=== PATIENT | female | born 1970 | race Caucasian/White ===

== ENCOUNTER 2017-11-23 16:14 | Emergency (ER) | payer OTHER ==
[2017-11-23] MEDS: LORAZEPAM 0.5 MG TAB PO (19:17)
[2017-11-23] MEDS: IBUPROFEN 600 MG TAB PO (19:17)
== END 2017-11-23 19:35 | disposition home or self-care (01) ==
LOC: FTE 16:14
DX: S09.90XA Unspecified injury of head, initial encounter (principal); E11.9 Type 2 diabetes mellitus without complications; W22.8XXA Striking against or struck by other objects, initial encounter; Y92.9 Unspecified place or not applicable
CPT/HCPCS: 99283; Z7502

== ENCOUNTER 2018-09-10 11:01 | Emergency (ER) | payer OTHER ==
[2018-09-10 12:58] LABS: ADD UMIC YES; UR ASCORBIC ACID NEGATIVE (NEGATIVE); UR BACTERIA FEW /HPF (NONE SEEN); UR BILIRUBIN (Dip) NEGATIVE (NEGATIVE); UR BLOOD (Dip) 1+ mg/dL (NEGATIVE); UR BUDDING YEAST FEW /HPF (NONE SEEN); UR CLARITY CLEAR (CLEAR); UR COLOR STRAW (YELLOW); UR GLUCOSE (Dip) 3+ mg/dL (NEGATIVE); UR KETONES (Dip) NEGATIVE (NEGATIVE); UR LEUKOCYTE ESTERASE (Dip) TRACE Leu/ul (NEGATIVE); UR NITRITE (Dip) NEGATIVE (NEGATIVE); UR RBC 6 /HPF (0-5); UR SPECIFIC GRAVITY (Dip) 1.033 (1.003-1.030); UR SQUAMOUS EPITHELIAL CELL FEW /HPF (FEW); UR TOTAL PROTEIN (Dip) NEGATIVE (NEGATIVE); UR UROBILINOGEN (Dip) NEGATIVE (NEGATIVE); UR WBC 1 /HPF (0-5)
== END 2018-09-10 13:23 | disposition home or self-care (01) ==
LOC: FTE 11:01
DX: N95.2 Postmenopausal atrophic vaginitis (principal)
CPT/HCPCS: 81001; 81025; 99284

== ENCOUNTER 2018-09-27 17:57 | Emergency (ER) | payer OTHER | END 2018-09-27 18:52 | disposition home or self-care (01) | LOC: FTE 17:57 → E/R 18:52 | DX: N76.0 Acute vaginitis (principal) | CPT/HCPCS: 99283; Z7502 ==